=== PATIENT | male | born 1995 | race Caucasian/White ===

== ENCOUNTER 2017-05-21 17:23 | Emergency (ER) | payer OTHER ==
[~2017-05-21] VITALS: Ht 170.2 cm; Wt 87.9 kg
[2017-05-21 17:35] VITALS: TEMP 36.6; Ht 170.2 cm; Wt 87.9 kg
[2017-05-21] MEDS ORDERED: CNC/27 PO ×2 (17:53→17:56)
[2017-05-21] MEDS ORDERED: ACETAMINOPHEN 500 MG TAB PO STA (17:55)
[2017-05-21] MEDS ORDERED: ALBUT/IPRATROP 3MG/0.5MG NEB 3 ML VIAL INH STA (17:55)
[2017-05-21] MEDS ORDERED: VNTHFA/IN INH (18:06)
--- NOTE | 2017-05-21 18:52 | DIAGNOSTIC IMAGING REPORT ---
CHEST 2 VIEWS ROUTINE HISTORY: 21 years-old Male chest tightness ?pneumonia acute cough with questionable pneumonia COMPARISON: None available TECHNIQUE: PA and lateral views of the chest FINDINGS: Cardiomediastinal and hilar silhouettes are within normal limits. No pneumothorax, pleural effusion, focal airspace consolidation or overt pulmonary edema. The bones of the chest are grossly intact. IMPRESSION: No acute cardiopulmonary process. The above report was generated using voice recognition software. It may contain grammatical, syntax or spelling errors. Electronically signed by: Delano Ramirez M.D. 05/21/2017 6:50 PM Dictated Date/Time: 05/21/2017 6:49 PM
[2017-05-21] MEDS ORDERED: IBUPROFEN 600 MG TAB PO STA (19:28)
[2017-05-21 19:29] LABS: BASO % 0.1 %; BASO ABS # 0.01 K/uL (0-0.2); COMPLETE YES; HEMATOCRIT 45.2 % (42-52); IG% 0.3 %; LYMPH % 29.6 %; LYMPH ABS # 2.16 K/uL (1.2-3.4); MEAN CELL VOLUME 86.9 fL (80-100); MEAN CORPUSCULAR HEMOGLOBIN 29.8 pg (25-34); MEAN CORPUSCULAR HGB CONC 34.3 g/dl (32-36); MEAN PLATELET VOLUME 10.4 fL (7.4-10.4); MONO % 5.9 %; NEUT % 64.1 %; PLATELET COUNT 221 K/uL (130-400); WHITE BLOOD COUNT 7.29 K/uL (4.8-10.8)
--- NOTE | 2017-05-21 19:32 | EMERGENCY ROOM VISIT NOTE ---
History First contact with patient: 17:44 Chief Complaint: OTHER COMPLAINT Stated Complaint: TIGHT CHEST,HEADACHE,FOGGY HEADED,TIRED History of Present Illness The patient is a 21 year old male who presents to the Emergency Room with complaints of flu like symptoms. He has been unwell for one week with sore throat, non productive cough. He went to urgent care and was treated with prednisone 60mg PO daily and a z-claudia but told it was probably something viral. He felt he was initially getting better but since the weekend he has been increasingly worn down, having a right sided headache and some chest tightness ( not relieved with albuterol) therefore decided to come to the ER. He denies any fevers or chills. He has no rash, vision changes or neck pain. He denies any chest pain (other than mild tightness), shortness of breath or wheezing. Review of Systems All other systems reviewed and otherwise negative Past Medical/Surgical History Medical Problems: (1) Asthma Social History Smoking Status: Never Smoker Drug Use: none Occupation Status: [employer] Current/Historical Medications Scheduled PRN Albuterol Hfa (Ventolin Hfa), 2-4 PUFFS INH Q6H PRN for SOB/Wheezing Physical Exam Vital Signs Date Time Temp Pulse Resp B/P (MAP) Pulse Ox O2 Delivery O2 Flow Rate FiO2 05/21/17 20:45 71 134/80 97 05/21/17 19:10 77 17 136/94 98 Room Air 05/21/17 17:35 36.6 68 18 160/102 97 Room Air Physical Exam General Appearance: WD/WN, no apparent distress Head: normocephalic, atraumatic Eyes: normal inspection, PERRL, EOMI, sclerae normal ENT: normal ENT inspection, hearing grossly normal, TMs normal, + pharyngeal erythema Neck: supple, no adenopathy, thyroid normal, trachea midline Respiratory/Chest: chest non-tender, lungs clear, normal breath sounds, no respiratory distress, no accessory muscle use Cardiovascular: regular rate, rhythm, no murmur, normal peripheral pulses Abdomen / GI: normal bowel sounds, non tender, soft Back: no CVA tenderness Extremities: no calf tenderness, normal capillary refill, no pedal edema 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 No pneumothorax, pleural effusion, focal airspace consolidation or overt pulmonary edema. The bones of the chest are grossly intact. IMPRESSION: No acute cardiopulmonary process. The above report was generated using voice recognition software. It may contain grammatical, syntax or spelling errors. Electronically signed by: Delano Ramirez M.D. 05/21/2017 6:50 PM Dictated Date/Time: 05/21/2017 6:49 PM Laboratory Results 05/21/17 19:15 Red Blood Count 5.20, Mean Corpuscular Volume 86.9, Mean Corpuscular Hemoglobin 29.8, Mean Corpuscular Hemoglobin Concent 34.3, Mean Platelet Volume 10.4, Neutrophils (%) (Auto) 64.1, Lymphocytes (%) (Auto) 29.6, Monocytes (%) (Auto) 5.9, Eosinophils (%) (Auto) 0.0, Basophils (%) (Auto) 0.1, Neutrophils # (Auto) 4.67, Lymphocytes # (Auto) 2.16, Monocytes # (Auto) 0.43, Eosinophils # (Auto) 0.00, Basophils # (Auto) 0.01 05/21/17 19:15 Test 05/21/17 18:30 05/21/17 19:15 Influenza Type A Antigen Neg for Influ A (NEG) Influenza Type B Antigen Neg for Influ B (NEG) White Blood Count 7.29 K/uL (4.8-10.8) Red Blood Count 5.20 M/uL (4.7-6.1) Hemoglobin 15.5 g/dL (14.0-18.0) Hematocrit 45.2 % (42-52) Mean Corpuscular Volume 86.9 fL (80-100) Mean Corpuscular Hemoglobin 29.8 pg (25-34) Mean Corpuscular Hemoglobin Concent 34.3 g/dl (32-36) Platelet Count 221 K/uL (130-400) Mean Platelet Volume 10.4 fL (7.4-10.4) Neutrophils (%) (Auto) 64.1 % Lymphocytes (%) (Auto) 29.6 % Monocytes (%) (Auto) 5.9 % Eosinophils (%) (Auto) 0.0 % Basophils (%) (Auto) 0.1 % Neutrophils # (Auto) 4.67 K/uL (1.4-6.5) Lymphocytes # (Auto) 2.16 K/uL (1.2-3.4) Monocytes # (Auto) 0.43 K/uL (0.11-0.59) Eosinophils # (Auto) 0.00 K/uL (0-0.5) Basophils # (Auto) 0.01 K/uL (0-0.2) RDW Standard Deviation 41.1 fL (36.4-46.3) RDW Coefficient of Variation 12.9 % (11.5-14.5) Immature Granulocyte % (Auto) 0.3 % Immature Granulocyte # (Auto) 0.02 K/uL (0.00-0.02) Anion Gap 8.0 mmol/L (3-11) Est Creatinine Clear Calc Drug Dose 128.8 ml/min Estimated GFR () 130.4 Estimated GFR (Non- 112.5 BUN/Creatinine Ratio 14.3 (10-20) Calcium Level 9.0 mg/dl (8.5-10.1) Total Bilirubin 0.9 mg/dl (0.2-1) Aspartate Amino Transf (AST/SGOT) 11 U/L (15-37) Alanine Aminotransferase (ALT/SGPT) 26 U/L (12-78) Alkaline Phosphatase 55 U/L (45-117) Troponin I < 0.015 ng/ml (0-0.045) Total Protein 8.1 gm/dl (6.4-8.2) Albumin 4.4 gm/dl (3.4-5.0) Globulin 3.7 gm/dl (2.5-4.0) Albumin/Globulin Ratio 1.2 (0.9-2) Monoscreen NEG (NEG) Medications Administered Medications (Trade) Dose Ordered Sig/Avery Route Start Time Stop Time Status Last Admin Dose Admin Albuterol/ Ipratropium (Duoneb) 3 ml ONE STAT INH 05/21/17 17:55 05/21/17 17:56 DC 05/21/17 18:27 3 ML Acetaminophen (Tylenol Tab) 1,000 mg NOW STAT PO 05/21/17 17:55 05/21/17 17:56 DC 05/21/17 18:27 1,000 MG Ibuprofen (Motrin Tab) 600 mg NOW STAT PO 05/21/17 19:28 05/21/17 19:30 DC 05/21/17 20:43 600 MG ED Course Complete history and physical was performed by myself The patient was discussed with Dr Messer who separately performed history and examination - advised adding routine labs and monospot Patient was reassessed on multiple occasions, no change with duoneb, acetaminophen was slightly helpful in regards to his headache His increased blood pressure was discussed with the patient. Lab work, EKG and imaging was all discussed with patient and he was advised to follow up with his family doctor next week for a blood pressure recheck. He was advised to continue his prednisone and azithromycin as previously described. Medical Decision Prior records/ancillary studies reviewed. Triage Nursing notes reviewed. Additional history obtained from patient. The patient's history was concerning for flu like symptoms. Differential diagnosis: Etiologies such as viral syndrome, tonsillitis, streptococcal pharyngitis, mononucleosis, peritonsillar abscess, retropharyngeal abscess, otitis, pneumonia , influenza, as well as others were entertained. ER treatment provided: Acetaminophen 1000mg PO Ibuprofen 400mg PO Duoneb On reassessment the patient felt better. Diagnostics interpreted by me: The labs were unremarkable Imaging studies: CXR - no acute pathology This appears to be consistent with viral URI. By the evaluation outlined above emergent etiologies such as peritonsillar abscess, retropharyngeal abscess, otitis, pneumonia, meningitis, urinary tract infection, sepsis, bacteremia, as well as others were deemed relatively unlikely. The patient was informed about the findings as listed above. All questions were answered and he was pleased with the treatment. Return instructions were outlined and the patient was discharged in stable condition. Referral: The patient was referred back to their primary care physician for follow-up in the next week for a recheck of the current condition and his blood pressure which was mildly elevated in the ER. Medication Reconcilliation Current Medication List: was personally reviewed by me Blood Pressure Screening Patient's blood pressure: Elevated blood pressure Blood pressure disposition: Elevated BP felt to be situational, Referred to PCP possibly also related to prednisone use Impression Primary Impression: Fatigue Additional Impression: Flu-like symptoms Departure Information Dispostion Home / Self-Care Condition GOOD Referrals No Doctor, Assigned (PCP) [facility] Patient Instructions My [facility] Additional Instructions UPPER RESPIRATORY INFECTION INSTRUCTIONS: Ibuprofen(Motrin, Advil): may be used for fever or pain. Use 600mg every six hours as needed. Take with food. Avoid using more than 2400mg in a 24 hour period. Do not use 2400mg per day for more than three consecutive days without physician direction. Prolonged inappropriate use can lead to stomach upset or ulcers. This is available over the counter and typically comes in 200mg tablets. (AND/OR) Acetaminophen(Tylenol): may be used for fever or pain. Use 1000mg every eight hours as needed. Avoid using more than 3000mg in a 24 hour period. This is available over the counter. Albuterol Inhaler: Take 2 puffs four times daily for two days, then as needed. Read all the package inserts or medication information paperwork provided. If you have any questions or concerns call your primary provider, pharmacist or the ER for assistance. Rest and drink plenty of fluids. Controlling your fever with Tylenol and Ibuprofen as above will make you feel better. Wash your hands after nose blowing, sneezing, or coughing. Most germs are spread through contact, therefore improper hygiene may result in your close contacts and loved ones becoming ill just like you. Continue prenisone and azithromycin as previously prescribed. Return to the ER for severe headache, neck stiffness, chest pain, difficulty breathing, fevers, vomiting, worsening of your condition, or as needed. Follow up with your primary physician next week for a recheck of your current condition and repeat blood pressure check. Resident Tracking Resident Involvement: Resident Care Provided Care Provided: Adult ED Problem Qualifiers Primary Impression: Fatigue Fatigue type: unspecified Qualified Codes: R53.83 - Other fatigue
[2017-05-21 19:50] LABS: ALT/SGPT 26 U/L (12-78); BLOOD UREA NITROGEN 14 mg/dl (7-18); BUN/CREATININE RATIO 14.3 (10-20); CARBON DIOXIDE 26 mmol/L (21-32); CHLORIDE 103 mmol/L (98-107); CREATININE 0.96 mg/dl (0.60-1.40); GLUCOSE 105 mg/dl (70-99); SODIUM 136 mmol/L (136-145)
[2017-05-21 19:54] LABS: ALB/GLOB RATIO 1.2 (0.9-2); ALKALINE PHOSPHATASE 55 U/L (45-117); AST/SGOT 11 U/L (15-37)
[2017-05-21 20:45] VITALS: BP 134/80; PULSE 71; O2SAT 97
--- NOTE | 2017-05-21 22:43 | EMERGENCY ROOM VISIT NOTE ---
History Report prepared by Mikaela: Radha Colindres Under the Supervision of: Dr. Manoj Messer M.D. First contact with patient: 17:41 Chief Complaint: OTHER COMPLAINT Stated Complaint: TIGHT CHEST,HEADACHE,FOGGY HEADED,TIRED History of Present Illness The patient is a 21 year old male who presents to the Emergency Room with complaints of worsening flu like symptoms that began one week ago. The patient has a sore throat and a non-productive cough. The patient states that his inhaler has not relieved his symptoms. He notes that he went to [facility] for treatment and was given 60mg of Prednisone PO daily and a z-pack for 5 days. [facility] told the patient it was most likely something viral. The patient felt some of his symptoms were relieved, but have worsened this weekend. For the past 4 days he has been having chest tightness, noting it was not relieved with Albuterol. He noted a minor headache. He denied any stiffness. He said his throat is mildly better. He still has occasional cough. The patient denied any significant chest pain although had some yesterday. Currently he has no pain. Pt denies LOC, fevers, chills, diaphoresis, visual changes, neck pain, breathing difficulties, nausea, vomiting, abdominal pain, back pain, melena, hematochezia, urinary symptoms, numbness, weakness, lymphadenopathy, rash, or other complaints. Source of History: patient Onset: one week Position: other (global ) Quality: other (flu like symptoms) Timing: worsening Associated Symptoms: + headache (right sided), + sorethroat, + cough Review of Systems See HPI for pertinent positives and negatives. A total of ten systems were reviewed and were otherwise negative. Past Medical & Surgical Medical Problems: (1) Asthma Family History No pertinent family history. Social History Smoking Status: Never Smoker Smokeless Tobacco Use: No Drug Use: none Marital Status: single Housing Status: lives with roommate Occupation Status: [employer] student Current/Historical Medications Scheduled PRN Albuterol Hfa (Ventolin Hfa), 2-4 PUFFS INH Q6H PRN for SOB/Wheezing Allergies Coded Allergies: NUTS (Unverified Allergy, Intermediate, ANAPHYLAXIS, 05/21/17) Nut Tree (Unverified Allergy, Intermediate, ANAPHYLAXIS, 05/21/17) Uncoded Allergies: SEASONAL (Allergy, Intermediate, ., 05/21/17) Physical Exam Vital Signs Date Time Temp Pulse Resp B/P (MAP) Pulse Ox O2 Delivery O2 Flow Rate FiO2 05/21/17 20:45 71 134/80 97 05/21/17 19:10 77 17 136/94 98 Room Air 05/21/17 17:35 36.6 68 18 160/102 97 Room Air Physical Exam GENERAL: Awake, alert, tired-appearing, in no distress HENT: Normocephalic, atraumatic. Oropharynx unremarkable. Uvula midline. EYES: Normal conjunctiva. Sclera non-icteric. NECK: Supple. No nuchal rigidity. FROM. No JVD. RESPIRATORY: Clear to auscultation. CARDIAC: Regular rate, normal rhythm. Extremities warm and well perfused. Pulses equal. ABDOMEN: Soft, non-distended. No tenderness to palpation. No rebound or guarding. No masses. No splenomegaly. RECTAL: Deferred. MUSCULOSKELETAL: Chest examination reveals no tenderness. The back is symmetrical on inspection without obvious abnormality. There is no CVA tenderness to palpation. No joint edema. LOWER EXTREMITIES: Calves are equal size bilaterally and non-tender. No edema. No discoloration. NEURO: Normal sensorium. No sensory or motor deficits noted. SKIN: No rash or jaundice noted. Medical Decision & Procedures ER Provider Diagnostic Interpretation: Radiology results as stated below per my review and radiologist interpretation: CHEST 2 VIEWS ROUTINE HISTORY: 21 years-old Male chest tightness ?pneumonia acute cough with questionable pneumonia COMPARISON: None available TECHNIQUE: PA and lateral views of the chest FINDINGS: Cardiomediastinal and hilar silhouettes are within normal limits. No pneumothorax, pleural effusion, focal airspace consolidation or overt pulmonary edema. The bones of the chest are grossly intact. IMPRESSION: No acute cardiopulmonary process. The above report was generated using voice recognition software. It may contain grammatical, syntax or spelling errors. Electronically signed by: Delano Ramirez M.D. 05/21/2017 6:50 PM Laboratory Results 05/21/17 19:15 Red Blood Count 5.20, Mean Corpuscular Volume 86.9, Mean Corpuscular Hemoglobin 29.8, Mean Corpuscular Hemoglobin Concent 34.3, Mean Platelet Volume 10.4, Neutrophils (%) (Auto) 64.1, Lymphocytes (%) (Auto) 29.6, Monocytes (%) (Auto) 5.9, Eosinophils (%) (Auto) 0.0, Basophils (%) (Auto) 0.1, Neutrophils # (Auto) 4.67, Lymphocytes # (Auto) 2.16, Monocytes # (Auto) 0.43, Eosinophils # (Auto) 0.00, Basophils # (Auto) 0.01 05/21/17 19:15 Test 05/21/17 18:30 05/21/17 19:15 Influenza Type A Antigen Neg for Influ A (NEG) Influenza Type B Antigen Neg for Influ B (NEG) White Blood Count 7.29 K/uL (4.8-10.8) Red Blood Count 5.20 M/uL (4.7-6.1) Hemoglobin 15.5 g/dL (14.0-18.0) Hematocrit 45.2 % (42-52) Mean Corpuscular Volume 86.9 fL (80-100) Mean Corpuscular Hemoglobin 29.8 pg (25-34) Mean Corpuscular Hemoglobin Concent 34.3 g/dl (32-36) Platelet Count 221 K/uL (130-400) Mean Platelet Volume 10.4 fL (7.4-10.4) Neutrophils (%) (Auto) 64.1 % Lymphocytes (%) (Auto) 29.6 % Monocytes (%) (Auto) 5.9 % Eosinophils (%) (Auto) 0.0 % Basophils (%) (Auto) 0.1 % Neutrophils # (Auto) 4.67 K/uL (1.4-6.5) Lymphocytes # (Auto) 2.16 K/uL (1.2-3.4) Monocytes # (Auto) 0.43 K/uL (0.11-0.59) Eosinophils # (Auto) 0.00 K/uL (0-0.5) Basophils # (Auto) 0.01 K/uL (0-0.2) RDW Standard Deviation 41.1 fL (36.4-46.3) RDW Coefficient of Variation 12.9 % (11.5-14.5) Immature Granulocyte % (Auto) 0.3 % Immature Granulocyte # (Auto) 0.02 K/uL (0.00-0.02) Anion Gap 8.0 mmol/L (3-11) Est Creatinine Clear Calc Drug Dose 128.8 ml/min Estimated GFR () 130.4 Estimated GFR (Non- 112.5 BUN/Creatinine Ratio 14.3 (10-20) Calcium Level 9.0 mg/dl (8.5-10.1) Total Bilirubin 0.9 mg/dl (0.2-1) Aspartate Amino Transf (AST/SGOT) 11 U/L (15-37) Alanine Aminotransferase (ALT/SGPT) 26 U/L (12-78) Alkaline Phosphatase 55 U/L (45-117) Troponin I < 0.015 ng/ml (0-0.045) Total Protein 8.1 gm/dl (6.4-8.2) Albumin 4.4 gm/dl (3.4-5.0) Globulin 3.7 gm/dl (2.5-4.0) Albumin/Globulin Ratio 1.2 (0.9-2) Monoscreen NEG (NEG) Laboratory results reviewed by me Medications Administered Medications (Trade) Dose Ordered Sig/Avery Route Start Time Stop Time Status Last Admin Dose Admin Albuterol/ Ipratropium (Duoneb) 3 ml ONE STAT INH 05/21/17 17:55 05/21/17 17:56 DC 05/21/17 18:27 3 ML Acetaminophen (Tylenol Tab) 1,000 mg NOW STAT PO 05/21/17 17:55 05/21/17 17:56 DC 05/21/17 18:27 1,000 MG Ibuprofen (Motrin Tab) 600 mg NOW STAT PO 05/21/17 19:28 05/21/17 19:30 DC 05/21/17 20:43 600 MG ECG Indication: other (flu like symptoms) Rate (beats per minute): 66 Findings: no acute ischemic change, no ectopy, other (no pericarditis) Comparison ECG Date: no prior available ED Course 1720: The patient was evaluated in room B10. A complete history and physical exam was performed. 5: Ordered Duoned 3ml INH and Tylenol Tab 1000mg PO. 1927: Ordered Motrin Tab 600mg PO. 2017: Reevaluated. Dr. Morel discussed results and discharge instructions: He verbalized understanding and agreement. The patient is ready for discharge. Medical Decision Triage Nursing notes reviewed. The patient's presentation and history were concerning for flu like symptoms. Etiologies such as viral syndrome, Otitis, mononucleosis, pharyngitis, reactive airway disease, pneumonia, cardiac sources, myocarditis, pericarditis, urinary tract infection, sepsis, bacteremia, meningitis, as well as others were entertained. The patient was evaluated. Clinically he was doing well. ECG was unremarkable. No ischemia, ectopy, or signs of pericarditis. His chest x-ray was unremarkable. No pneumonia or pneumothorax. Heart size normal. The patient had an unremarkable CBC and chemistry panel. His troponin was negative. Unlikely that this is myocarditis. He was given a DuoNeb treatment. He felt about the same. His pulmonary examination does not reveal any significant wheezing after the treatment. Emmet testing was negative although his symptoms would fit with a moderate-like illness. He also has a flulike illness but consistent test was negative. Given his symptoms conservative management was discussed. He will continue current medications. He notes he has not been sleeping well due to his pending examinations. Close follow-up was recommended. Patient's blood pressure was initially elevated but was improved with rest here. This will need to be monitored. He was notified.I gave my usual and customary discussion regarding this issue. The patient was seen and examined with Dr. Morel, resident physician. We discussed the case and treatments ordered, reviewed the results, and determine the disposition. Please refer to the resident's note for additional details. I have been directly involved with the management and disposition as well as independently evaluated the patient as documented in this note. By the evaluation outlined above other emergent etiologies such as those listed in the differential, as well as others, were deemed relatively unlikely. The patient was educated about the findings as listed above. All questions were answered and the patient was pleased with the treatment. Return instructions were outlined and the patient was discharged in stable condition. The patient was referred to [facility] for follow-up for a recheck of the current condition. Medication Reconcilliation Current Medication List: was personally reviewed by me Blood Pressure Screening Patient's blood pressure: Elevated blood pressure Blood pressure disposition: Referred to PCP Impression Primary Impression: Fatigue Additional Impression: Flu-like symptoms Scribe Attestation The scribe's documentation has been prepared under my direction and personally reviewed by me in its entirety. I confirm that the note above accurately reflects all work, treatment, procedures, and medical decision making performed by me. Departure Information Dispostion Home / Self-Care Referrals No Doctor, Assigned (PCP) Forms HOME CARE DOCUMENTATION FORM, IMPORTANT VISIT INFORMATION, WORK / SCHOOL INSTRUCTIONS Patient Instructions My [facility] Additional Instructions UPPER RESPIRATORY INFECTION INSTRUCTIONS: Ibuprofen(Motrin, Advil): may be used for fever or pain. Use 600mg every six hours as needed. Take with food. Avoid using more than 2400mg in a 24 hour period. Do not use 2400mg per day for more than three consecutive days without physician direction. Prolonged inappropriate use can lead to stomach upset or ulcers. This is available over the counter and typically comes in 200mg tablets. (AND/OR) Acetaminophen(Tylenol): may be used for fever or pain. Use 1000mg every eight hours as needed. Avoid using more than 3000mg in a 24 hour period. This is available over the counter. Albuterol Inhaler: Take 2 puffs four times daily for two days, then as needed. Read all the package inserts or medication information paperwork provided. If you have any questions or concerns call your primary provider, pharmacist or the ER for assistance. Rest and drink plenty of fluids. Controlling your fever with Tylenol and Ibuprofen as above will make you feel better. Wash your hands after nose blowing, sneezing, or coughing. Most germs are spread through contact, therefore improper hygiene may result in your close contacts and loved ones becoming ill just like you. Continue prenisone and azithromycin as previously prescribed. Return to the ER for severe headache, neck stiffness, chest pain, difficulty breathing, fevers, vomiting, worsening of your condition, or as needed. Follow up with your primary physician next week for a recheck of your current condition and repeat blood pressure check. Problem Qualifiers
== END 2017-05-21 20:45 | disposition home or self-care (01) ==
LOC: C.EDB 17:25
DX: R53.83 Other fatigue (principal); J02.9 Acute pharyngitis, unspecified; R05 Cough; R51 Headache; R07.89 Other chest pain; J45.909 Unspecified asthma, uncomplicated